=== PATIENT | male | born 1965 | race Caucasian/White ===

== ENCOUNTER 2020-12-28 16:01 | Observation (INO) | payer OTHER ==
[~2020-12-28] VITALS: Ht 177.8 cm; Wt 131.5 kg
[~2020-12-28 16:01] MED LIST: ALBUTEROL2.5 MG/3 M INH; ALDACTONE25 MG PO; ALDACTONE50 MG PO; AMOX TR-K CLV1 EAC3 PO; ASPIRIN CHEWABL81 MG PO; ATROVENT INH S2.5 ML INH; BETAPACE 80MG T80 MG PO; BUDESONIDE0.5 MG/2 M INH; BUMETANIDE1 MG PO; CHANTIX0.5 MG PO; CLOPIDOGREL75 MG PO; COMBIVENT0.074 GM/I INH; COREG 3.125M3.125 MG PO; COREG6.25 MG PO; ELIQUIS 5 MG TAB5 MG PO; ENTRESTO 24 MG1 EACH PO; FUROSEMIDE20 MG PO; GLUCOPHAGE 500500 MG PO; HABITROL 21 MG P1 EA TOP; HUMALOG 10100 UNITS/ SC; IPRAT-ALBUT 0.5-3 ML INH; K-DUR TAB 10 M10 MEQ PO; K-DUR TAB 20 M20 MEQ PO; LANTUS INS100 UTS/M1 SC; LASIX20 MG PO; LASIX40 MG PO; LEVAQUIN250 MG PO; LIPITOR TAB 2020 MG PO; LOPRESSOR 25 MG25 MG PO; MEDROL DOSEPAK 24 MG PO; METOPROLOL SUCC25 MG PO; NAPROSYN500 MG PO; NITROSTAT0.4 MG SL; PANTOPRAZOLE SO40 MG PO; PLAVIX 75 MG TA75 MG PO; PREDNISONE10 MG PO; PREDNISONE20 MG PO; PROTONIX 20 MG20 MG PO; PROVENTIL HFA6.7 GM INH; SYMBICORT 160-1 INHA INH; SYMBICORT 16010.2 GM INH; TAMIFLU75 MG PO; TYLENOL 325MG325 MG PO; VENTOLIN HFA 66.7 GM INH; VENTOLIN/PROVE0.5 ML INH; VIBRAMYCIN100 MG PO; WARFARIN SODIUM5 MG PO; ZESTRIL20 MG PO; ZITHROMAX TRI-500 MG PO; ZITHROMAX500 MG PO
[2020-12-28 16:23] LABS: HEMOGLOBIN 12.1 gm/dl (14.0-17.5); RED BLOOD COUNT 4.86 M/UL (4.20-5.50); WHITE BLOOD COUNT 8.9 K/UL (4.5-11.0)
[2020-12-28 16:55] LABS: BUN/CREATININE RATIO 14 (0-10)
[2020-12-28] MEDS ORDERED: ENTRESTO 24 MG1 EACH PO ×2 (20:38→20:39)
[2020-12-29 03:01] LABS: HEMOGLOBIN 10.8 gm/dl (14.0-17.5); RED BLOOD COUNT 4.43 M/UL (4.20-5.50)
[2020-12-29 03:20] LABS: BUN/CREATININE RATIO 17 (0-10)
[2020-12-30 03:56] LABS: HEMOGLOBIN 10.9 gm/dl (14.0-17.5); RED BLOOD COUNT 4.45 M/UL (4.20-5.50)
[2020-12-30 03:57] LABS: WHITE BLOOD COUNT 7.2 K/UL (4.5-11.0)
[2020-12-30 04:12] LABS: BUN/CREATININE RATIO 17 (0-10)
== END 2020-12-30 13:38 | disposition home or self-care (01) ==
LOC: ER1 16:01 → CDU 18:10 → PROG CARE 18:10
PROVIDERS: Emergency Medicine; ADMIT Internal Medicine
DX: T43.621A Poisoning by amphetamines, accidental (unintentional), initial encounter (principal); T40.2X1A Poisoning by other opioids, accidental (unintentional), initial encounter; R41.82 Altered mental status, unspecified; I95.9 Hypotension, unspecified; I42.0 Dilated cardiomyopathy; I11.0 Hypertensive heart disease with heart failure; I50.22 Chronic systolic (congestive) heart failure; E11.9 Type 2 diabetes mellitus without complications; D68.8 Other specified coagulation defects; I47.2 Ventricular tachycardia; I25.10 Atherosclerotic heart disease of native coronary artery without angina pectoris; F41.9 Anxiety disorder, unspecified; J44.9 Chronic obstructive pulmonary disease, unspecified; G47.33 Obstructive sleep apnea (adult) (pediatric); E78.5 Hyperlipidemia, unspecified; Z95.5 Presence of coronary angioplasty implant and graft; Z95.810 Presence of automatic (implantable) cardiac defibrillator; Z87.891 Personal history of nicotine dependence; Z99.81 Dependence on supplemental oxygen; Z20.822 Contact with and (suspected) exposure to COVID-19; Z87.09 Personal history of other diseases of the respiratory system; Z83.3 Family history of diabetes mellitus; Z88.8 Allergy status to other drugs, medicaments and biological substances; Z79.82 Long term (current) use of aspirin; Z79.01 Long term (current) use of anticoagulants; Z79.4 Long term (current) use of insulin; Z79.899 Other long term (current) drug therapy
CPT/HCPCS: 36415; 36600; 71045; 80048; 80053; 80307; 81001; 82550; 82553; 82803; 82962; 83605; 83735; 83874; 83880; 84484; 85025; 85610; 85730; 87040; 93005; 94640; 94664; 94760; 96365; 96366; 96367; 96376; 99285; G0378; J0295; J2543; U0002

== ENCOUNTER 2022-04-26 19:14 | Inpatient (IN) | payer OTHER ==
[~2022-04-26] VITALS: Ht 177.8 cm; Wt 111.1 kg
[2022-04-26 19:38] LABS: HEMOGLOBIN 14.3 gm/dl (14.0-17.5); RED BLOOD COUNT 5.21 M/UL (4.20-5.50); WHITE BLOOD COUNT 11.3 K/UL (4.5-11.0)
[2022-04-27 02:21] LABS: BUN/CREATININE RATIO 25 (0-10)
[2022-04-27] MEDS ORDERED: ENTRESTO 24 MG1 EACH PO (06:46)
[2022-04-27] MEDS ORDERED: KLOR-CON 1010 MEQ PO (06:48)
[2022-04-28 04:25] LABS: HEMOGLOBIN 13.4 gm/dl (14.0-17.5); RED BLOOD COUNT 4.94 M/UL (4.20-5.50); WHITE BLOOD COUNT 9.5 K/UL (4.5-11.0)
[2022-04-28 04:45] LABS: BUN/CREATININE RATIO 26 (0-10)
[2022-04-28] MEDS ORDERED: COREG6.25 MG PO (12:45)
[2022-04-28] MEDS ORDERED: LANTUS INS100 UTS/M1 SC (12:45)
[2022-04-28] MEDS ORDERED: LIPITOR80 MG PO (12:45)
[2022-04-28] MEDS ORDERED: ENTRESTO 24 MG1 EACH PO (12:45)
[2022-04-28] MEDS ORDERED: LANTUS INS100 UTS/M1 SQ (12:45)
[2022-04-28] MEDS ORDERED: NITROSTAT0.4 MG SL (12:45)
[2022-04-28] MEDS ORDERED: BUMETANIDE1 MG PO (12:45)
[2022-04-28] MEDS ORDERED: WARFARIN SODIUM5 MG PO (12:45)
== END 2022-04-28 13:51 | disposition home or self-care (01) | DRG 309 ==
LOC: ER1 19:14 → PROG CARE 20:56 → CDU 20:56 → PROG CARE 22:18
PROVIDERS: Family Medicine; Internal Medicine; ADMIT Internal Medicine
PROC: B24BZZZ Ultrasonography of Heart with Aorta (ICD-10-PCS; principal; 2022-04-28)
DX: I48.92 Unspecified atrial flutter (principal); I50.22 Chronic systolic (congestive) heart failure; J44.0 Chronic obstructive pulmonary disease with (acute) lower respiratory infection; Z68.41 Body mass index [BMI] 40.0-44.9, adult; Z20.822 Contact with and (suspected) exposure to COVID-19; I27.20 Pulmonary hypertension, unspecified; E11.9 Type 2 diabetes mellitus without complications; F19.10 Other psychoactive substance abuse, uncomplicated; E66.01 Morbid (severe) obesity due to excess calories; G47.33 Obstructive sleep apnea (adult) (pediatric); I42.8 Other cardiomyopathies; E78.5 Hyperlipidemia, unspecified; F17.210 Nicotine dependence, cigarettes, uncomplicated; J60 Coalworker's pneumoconiosis; I11.0 Hypertensive heart disease with heart failure; I48.20 Chronic atrial fibrillation, unspecified; I08.3 Combined rheumatic disorders of mitral, aortic and tricuspid valves; R79.1 Abnormal coagulation profile; Z79.01 Long term (current) use of anticoagulants; Z91.14 Patient's other noncompliance with medication regimen; Z95.2 Presence of prosthetic heart valve; Z95.810 Presence of automatic (implantable) cardiac defibrillator; Z83.3 Family history of diabetes mellitus; Z80.9 Family history of malignant neoplasm, unspecified; Z82.49 Family history of ischemic heart disease and other diseases of the circulatory system; Z82.5 Family history of asthma and other chronic lower respiratory diseases; Z79.82 Long term (current) use of aspirin
CPT/HCPCS: ECHO; 36415; 36600; 70450; 71045; 80048; 80053; 82550; 82553; 82803; 82962; 83605; 83880; 84484; 85025; 85610; 93005; 93306; 93880; 94640; 94664; 94760; 96374; 99285; J1160; J1650

== ENCOUNTER → 2022-04-30 | Outpatient (CLI) | payer OTHER ==
[~2022-04-30] MED LIST changes: +KLOR-CON 1010 MEQ PO; +LANTUS INS100 UTS/M1 SQ; +LIPITOR80 MG PO
== END ==
LOC: LAB 16:06
DX: R48.2 Apraxia (principal); T82.01XA Breakdown (mechanical) of heart valve prosthesis, initial encounter
CPT/HCPCS: 36415; 85610